=== PATIENT | female | born 1965 | race Caucasian/White ===

== ENCOUNTER 2020-01-19 16:00 | Emergency (ER) | payer MEDICAID ==
[~2020-01-19] VITALS: Ht 149.9 cm; Wt 76.7 kg
[~2020-01-19 16:00] MED LIST: MEDI-FIRST ASP325 MG PO; MEDROL DOSEPAK4 MG PO; VENTOLIN H0.09 MG/A1 INH; ZITHROMAX TRI-500 MG PO
[2020-01-19 16:11] VITALS: BP 112/70; Ht 149.9 cm; Wt 76.7 kg
== END 2020-01-19 17:45 | disposition home or self-care (01) ==
LOC: ED 16:00
DX: H11.32 Conjunctival hemorrhage, left eye (principal)